=== PATIENT | male | born 1995 | race Caucasian/White ===

== ENCOUNTER 2017-08-02 13:56 | Emergency (ER) | payer OTHER ==
[~2017-08-02] VITALS: Ht 182.9 cm; Wt 75.0 kg
[2017-08-02] MEDS ORDERED: NS 1,000 ML IV SCH (14:22)
[2017-08-02] MEDS ORDERED: ONDANSETRON 4MG/2ML VIAL (J2405) IV ONE (14:30)
[2017-08-02] MEDS ORDERED: MORPHINE 2 MG/ML 1ML SYRINGE IV PRN (14:30)
[2017-08-02] MEDS ORDERED: KETOROLAC 30 MG/ML VIAL (J1885) IV ONE (14:30)
--- NOTE | 2017-08-02 14:50 | REP ---
Clinical: Left renal colic. Findings: Lung bases are clear. Liver, spleen, pancreas, gallbladder, bilateral adrenal glands and kidneys are normal. Specifically, the kidneys are normal and without perinephric stranding, hydroureternephrosis, intrarenal or obstructing ureteral calculi. The enteric system is without obstruction or acute inflammatory process. Pelvis demonstrates normal bladder and age appropriate prostate/seminal vesicles. No ascites. No free air. No obvious adenopathy. Abdominal aorta without aneurysm. Surrounding musculoskeletal structures are intact. Impression: Normal noncontrast CT of the abdomen and pelvis. No acute abdominopelvic pathology appreciated. Signed by Jaswinder Farris MD 08/02/2017 02:42 P
[2017-08-02 14:52] LABS: BASO % 0.3 % (0.0-1.0); EOS # 0.1 K/mm3 (0.0-0.50); EOS % 0.6 % (0.0-3.0); LARGE UNSTAINED CELL # 0.3 K/mm3 (0.0-0.4); LARGE UNSTAINED CELL % 2.9 % (0.0-4.0); LYMPH # 1.3 K/mm3 (1.5-6.5); MEAN CORPUSCULAR HEMOGLOBIN 29.4 pg (27.0-33.0); MEAN CORPUSCULAR VOLUME 81.6 fl (80.0-96.0); MONO # 0.6 K/mm3 (0.0-0.8); MONO % 6.3 % (0.0-5.0); NEUTROPHILS # 7.4 K/mm3 (1.8-7.7); NEUTROPHILS % 76.9 % (36.0-66.0); PLATELET COUNT, AUTOMATED 132 k/mm3 (150-450); WHITE BLOOD COUNT 9.6 K/mm3 (4.0-10.0)
[2017-08-02 14:57] LABS: INR 1.06
[2017-08-02 15:11] LABS: ALBUMIN/GLOBULIN RATIO 1.74 (1.00-1.93); ALKALINE PHOSPHATASE 95 U/L (45-117); ALT/SGPT 30 U/L (12-78); ANION GAP 7 MEQ/L (8-16); AST/SGOT 38 U/L (15-37); BILIRUBIN,DIRECT 0.1 MG/DL (0.0-0.2); BILIRUBIN,TOTAL 0.5 MG/DL (0.2-1.0); BLOOD UREA NITROGEN 22 MG/DL (7-18); CALCIUM LEVEL 9.2 MG/DL (8.5-10.1); CARBON DIOXIDE LEVEL 28 MEQ/L (21-32); CHLORIDE LEVEL 109 MEQ/L (98-107); CREATININE FOR GFR 1.59 MG/DL (0.70-1.30); GLUCOSE, FASTING 86 MG/DL (70-105); SODIUM LEVEL 144 MEQ/L (136-145); TOTAL PROTEIN 6.3 GM/DL (6.4-8.2)
[2017-08-02 15:37] VITALS: BP 129/81
== END 2017-08-02 15:39 | disposition home or self-care (01) ==
LOC: M ED 13:56
DX: E86.0 Dehydration (principal); R10.9 Unspecified abdominal pain; R11.10 Vomiting, unspecified
CPT/HCPCS: 74176; 80048; 80076; 81001; 83690; 85025; 85610; 87086; 96374; 96375; 99283; J1885; J2405

== ENCOUNTER 2021-01-14 11:11 | Emergency (ER) | payer OTHER ==
[~2021-01-14] VITALS: Ht 182.9 cm; Wt 77.7 kg
--- OUTSIDE RECORDS SUMMARY | 2021-01-14 11:18 | CCD ---
Author Author [facility] Organization [facility] Address Unknown Phone Unavailable Care Team Providers Care Mucker Cofferdam Name Role Phone UNKNOWN, CLINIC CADE Unavailable Unavailable TURRIN, TIFFANY Unavailable Unavailable TURRIN, TIFFANY Unavailable Unavailable TURRIN, TIFFANY Unavailable Unavailable TURRIN, TIFFANY Unavailable Unavailable Re-disclosure Warning The records that you are about to access may contain information from federally-assisted alcohol or drug abuse programs. If such information is present, then the following federally mandated warning applies: This information has been disclosed to you from records protected by federal confidentiality rules (42 CFR part 2). The federal rules prohibit you from making any further disclosure of this information unless further disclosure is expressly permitted by the written consent of the person to whom it pertains or as otherwise permitted by 42 CFR part 2. A general authorization for the release of medical or other information is NOT sufficient for this purpose. The Federal rules restrict any use of the information to criminally investigate or prosecute any alcohol or drug abuse patient.The records that you are about to access may contain highly sensitive health information, the redisclosure of which is protected by Article 27-F of the [facility] Public Health law. If you continue you may have access to information: Regarding HIV / AIDS; Provided by facilities licensed or operated by the [facility] Office of Mental Health; or Provided by the [facility] Office for People With Developmental Disabilities. If such information is present, then the following [facility] mandated warning applies: This information has been disclosed to you from confidential records which are protected by state law. State law prohibits you from making any further disclosure of this information without the specific written consent of the person to whom it pertains, or as otherwise permitted by law. Any unauthorized further disclosure in violation of state law may result in a fine or senior care sentence or both. A general authorization for the release of medical or other information is NOT sufficient authorization for further disc losure. Encounters Encounter Providers Location Date Indications Data Source(s ) Emergency Attender: TIFFANY MORALESConsultant: ALYSSIA RONIT NOWReina 01/11/2021 10:11:00 AM [facility] - 01/11/2021 12:02:00 PM [facility] Patient discharged. Insurance Providers Payer name Policy type / Coverage type Policy ID Covered democrat ID Covered democrat's relationship to pearson Policy Pearson Plan Information ACTIVE DUTY [id number] SP [id number] [facility] HUMANA - O/P [id number] 01 [id number] [facility] [employer] - O/P [id number] 18 [id number] N [facility] [place] -O/P [id number] 18 [id number] Problems, Conditions, and Diagnoses Code Display Name Description Problem Type Effective Dates Data Source(s) R57000 Personal history of nicotine dependence Personal history of nicotine dependence Diagnosis 01/11/2021 10:11:00 AM [facility] R519 Headache, unspecified Headache, unspecified Diagnosis 01/11/2021 10:11:00 AM [facility] Results ID Date Data Source [id number] 01/12/2021 06:22:00 PM [facility] [address] [place] [address] PHONE: [phone] FAX: [phone] Name .................. : NILES Perez Acct Number.................. : [id number] ROOM. ................. : TR-02 Number ................... : [id number] Stay type ............. : E/R Discharge Date......... ... : 01/11/21 Admit Date ......... : 01/11/21 Admit Phys .................... : CARMEN FE Date of ....... : 1995 Family Phys ................... : UNKNOWN Phone .................. : [phone] Age ................................ : 25 Film# .................. .:[id number] Sex ................................. : M Unsigned transcriptions are preliminary reports and do not represent a medical or legal document CT HEAD W/O CONTRAST [id number] COMPLETE:01/11/21 10:52 FRANCISCO [id number] Reason(s): ? R eye pupillary dilatation and R sided headache x [address] OF THE HEAD WITHOUT CONTRAST ENHANCEMENT: CLINICAL HISTORY: Right eye pupillary dilatation, right-sided headaches. FINDINGS: No intra-axial or extra-axial collections of fluid. Ventricles and sulci unremarkable. No midline shift or mass effect. Visualized paranasal sinuses and mastoid air cells unremarkable. IMPRESSION: No acute intracranial process. While performing the above CT examination, radiation dose reduction was accomplished utilizing automated exposure control, adjusting of the mA and kV based on the patient's body size an d/or the use of imperative reconstructive techniques. CT dose: 864.3 mGycm Electronically Reviewed and Signed By ARY NDIAYE MD , 01/12/21 18:22, [facility] Transcribe Initials: ELDER , Transcribe Date: 01/11/21 15:45, Dictation Date: Copy for: CLAUDE Rawls via fax Copy for: EMERGENCY DEPT via carawaym Copy for: 710 MED REC DISCHARGED Page 1 of 1 Name Value Range Interpretation Code Description Data Jayshree rce(s) Supporting Document(s) ID Date Data Source [id number] 01/11/2021 10:11:00 AM EST [facility] 1 OrderSheet [facility] Emergency Department [address] [place] [address] Phone #: ext- [phone] 01/11/2021 10:03 Patient: АНДРЕЙ CAGE Sex: M : 1995 Age: 25yWEIGHT:86.8 kg (M) HEIGHT:72 inches (S) BMI:26.0ALLERGIES: NoneCHIEF COMPLAINT: headacheDIAGNOSIS: HeadacheLAB ORDERSOrder Description Priority Entered Acknowledged InitialedCBC w Diff STAT 10:35 01/11/2021 10:39 Dat Canales; Yvette ChildersCMP STAT 10:35 01/11/2021 10:39 Dat Canales; Yvette ChildersDIAGNOSTIC STUDY ORDERSOrder Description Priority Entered Acknowledged InitialedCT Head W/O Cont STAT 10:35 01/11/2021 10:52 Parker,(Oxygen?(No)) Dat CH; Yvette Childers Reason for Study: ? R eye pupilaary dilatation and R sided headache x 2 mos.MEDICATION/IV/DRIP/FLUID ORDERSOrder Description Priority Entered Acknowledged InitialedAcetaminophen 1 g 10:35 01/11/2021 10:39 Parker,PO X1 dose: 1000 Dat CH; Yvette Childersmg (NOW x1)GENERAL ORDERSOrder Description Priority Entered Acknowledged Initialed[Electronically signed by Yvette Canales R.N. (11:59 01/11/2021)][Electronically signed by Dat Chavez (13:13 01/11/2021)][Electronically locked by Yvette Canales R.N. (11:59 01/11/2021)] Name Value Range Interpretation Code Description Data [facility](s) Supporting Document(s) ID Date Data Source [id number] 01/11/2021 10:11:00 AM [facility] 1 Medication Reconciliation Report [facility] Emergency Department [address] [place] [address] Phone #: ext- [phone] 01/11/2021 10:03 Patient: АНДРЕЙ CAGE Sex: M : 1995 Age: 25yWeight: 86.8 kgHeight/Length: 72 in.BMI: 26.0ALLERGIES: NoneThe patient's Home Medications are listed below:CONTINUE TAKING THE FOLLOWING MEDICATIONS: Cyclobenzaprine HCl Oral (10 mg), prn some mediation it is like motrinThe source(s) of the original Home Medication information:Not o btained.The following Medications were given to the patient in the Emergency Department:Acetaminophen [PO] PO 1000 mg, administered: 10:39 01/11/2021The following Medications were prescribed to the patient:None. Name Value Range Interpretation Code Description Data [facility](s) Supporting Document(s) ID Date Data Source [id number] 01/11/2021 10:11:00 AM [facility] 1 Medication Administration Record [facility] Emergency Department [address] [place] [address] Phone #: ext- [phone] 01/11/2021 10:03 Patient: АНДРЕЙ CAGE Sex: M : 1995 Age: 25yWeight: 86.8 kgHeight/Length: 72 inBMI: 26ALLERGIES: None Date/Time Medication Administered Medication OrderedGiven ACETAMINOPHEN [PO] Acetaminophen 1 g PO X1 dose:10:39 01/11/2021 Dose: 1000 mg PO 1000 mg (NOW x1)Yvette Canales R.N. Name Value Range Interpretation Code Description Data Jayshree rce(s) Supporting Document(s) ID Date Data Source [id number] 01/11/2021 10:11:00 AM EST [facility] 1 General Instructions [facility] Emergency Department [address] [place] [address] Phone #: ext- [phone] 01/11/2021 10:03 Patient: АНДРЕЙ CAGE Sex: M : 1995 Age: 25yHeadache (non specific).(? anisicoria R eye).INSTRUCTIONSNo strenuous activity until better.Do not smoke. No alcohol.Warnings: Further evaluation is necessary in order to conduct further tests. It is very important to follow upwith a healthcare provider.GENERAL WARNINGS: Return or contact your physician immediately if your condition worsens orchanges unexpectedly, if not improving as expected, or if other problems arise. SPECIFICALLY, return ifyou develop fe chaz, vomiting, numbness, weakness, difficulty thinking, visual disturbances, fainting orextreme fatigue.Your Current Medications: Your current home medications have been reviewed.CONTINUE TAKING THE FOLLOWING MEDICATIONS:Cyclobenzaprine HCl Oral : Tablet 10 mg, prn.some mediation it is like motrin*.Follow-up:Follow up with your healthcare provider in three days even if well. Call for the next available appointment.Reason for referral: evaluation and recommend MRI/MRA brain, neurology referral if symptoms persist.Recommend Ophthalmology referral for further evaluation of ? anisicoria R eye. Summary of care providedto patient via paper.Understanding of the discharge instructions verbalized by patient. Expected course of illness, dischargeinstructions, activity level, follow-up appointment and risks and benefits of treatment reviewed with patientand understanding verbalized. Agrees to plan of care.Follow-up with: [facility], , , [address], , [place], [address] Follow up in three days even if well. Call for the next available appointment. Reason for referral:evaluation and ? anisicoria R eye, with R sided episodic headaches. Summary of care provided to patientvia paper. 2 General Instructions [facility] Emergency Department [address] [place] [address] Phone #: cnw- [phone] 01/11/2021 10:03 Patient: АНДРЕЙ CAGE Sex: M : 1995 Age: 25yNo strenuous activity until better.(Electronically signed by JING Brandt 01/11/2021 13:13) Name Value Range Interpretation Code Description Data Jayshree rce(s) Supporting Document(s) ID Date Data Source [id number] 01/11/2021 10:11:00 AM EST [facility] 1 Clinical Report - Nurses [facility] Emergency Department [address] [place] [address] Phone #: ext- [phone] 01/11/2021 10:03 Patient: АНДРЕЙ CAGE Sex: M : 1995 Age: 25yTRIAGEArrived by private vehicle. Historian: patient. Unaccompanied. ( pt states his pupil sizes have beendifferent sizes and during this time he has a headache).Acuity: LEVEL 3.Chief Complaint: (pupil changes).Alert. No acute distress.This started 2 weeks on and off. ( states he f eels "off"). The patient has had a headache (right side).Treatment DISTRICT COURT JUDGE:None.SEPSIS SCREEN: SIRS SCREEN NEGATIVE. SEPSIS SCREEN NEGATIVE. No suspected or confirmedsigns of infection present. --10:12 01/11/21 Regina Wade R.N.10:05 01/11/21. BP: 136/75. MAP: 95. HR: 73. RR: 18. O2 saturation: 99%. Temp: 97.3 F. Pain level now:03/29. --10:12 01/11/21 Regina Wade R.N.Weight: 86.8 kg measured. Height/Length: 72 inches Per Patient. BMI: 26. --10:05 01/11/21 Regina Wade R.N.MedicationsCyclobenzaprine HCl Oral (Tablet 10 mg), as needed. --10:07 01/11/21 Regina Wade R.N. some mediation it is like motrin. --10:08 01/11/21 Regina Wade R.N.AllergiesNone. --10:07 01/11/21 Regina Wade R.N.PROBLEMS:Testicular issue.Anxiety Reaction.Hip issues.Neck issues. --10:09 01/11/21 Regina Wade R.N.Back Pain. --10:12 01/11/21 Charles Brandt following entry was modified by JING Brandt, 10:12 01/11/21Back Pain. --10:08 01/11/21 Regina Wade R.N..ADDITIONAL SURGERIES: 2 Clinical Report - Nurses [facility] Emergency Department [address] [place] [address] Phone #: ext- [phone] 01/11/2021 10:03 Patient: АНДРЕЙ CAGE [facility]#: [id number] Sex: M : 1995 Age: 25y Hernia Repair. Testicular surgery. --10:09 01/11/21 Regina Wade R.N. History PAST MEDICAL HX: Immunizations: up-to-date. SOCIAL HX: Smoker- current status unknown (quit 1 month ago). Occasional alcohol use. Drug use: marijuana. (stopped 3 weeks ago). The patient was offered HIV testing but declined and hepatitis C testing but declined. The patient has not traveled outside the [place] Infectious disease exposure: No infectious disease exposure. Patient is not a known carrier of tuberculosis, hepatitis, HIV, MRSA or VRE. Patient is not a known carrier of CRE. SELF HARM ASSESSMENT: Self harm assessment was performed. The patient answered "no" to the question(s) "Have you recently felt down, depressed, or hopeless?", "Do you have thoughts of harming or killing yourself?", "Do you have a plan for harming or killing yourself?", "Have you recently had thoughts about harming or killing others?", "Do you have any dangerous items in your possession?", "Have you noticed less interest or pleasure in doing things?", "Are you here because you tried to hurt yourself?" and "Have you ever tried to hurt yourself before today?". ABUSE ASSESSMENT: Abuse assessment. Abuse denied. No suspicion of abuse. No report of abuse. NUTRITIONAL RISK ASSESSMENT: The nutritional risk assessment revealed no deficiencies. FUNCTIONAL ASSESSMENT: Functional assessment: no impairments noted. LEARNING NEEDS ASSESSMENT: The learning needs assessment revealed no barriers. FALL RISK ASSESSMENT: Fall risk assessment completed. No risk factors identified. SKIN INTEGRITY ASSESSMENT: Skin integrity risk assessment completed. No skin integrity risk identified. --10:12 01/11/21 Regina Wade R.N. Interventions Identification band on patient. To treatment room. --10:12 01/11/21 Regina Wade R.N.PHYSICAL ASSESSMENTAmbulatory to room.GENERAL / NEURO / PSYCH: Awake. Oriented X 4. Alert. Appears in no acute distress. Speechnormal. Mood/affect normal. Moves all extremities equally. No motor deficit. No sensory deficit.Pupillary exam: Right pupil 5mm, round and briskly reactive. Left pupil: 3mm, round and briskly reactive.HEENT: Visual acuity without corrective lenses: left eye 20/25; right eye 20/40; both eyes 20/25. ( Rightsided RYAN).RESPIRATORY: Breath sounds within normal limits. Respirations not labored.CVS: Normal sinus rhythm noted. Capillary refill less than 2 seconds.SKIN: Skin is intact, warm and dry. --10:35 01/11/21 Yvette Canales R.N. 3 Clinical Report - Nurses [facility] Emergency Department [address] [place] [address] Phone #: ext- [phone] 01/11/2021 10:03 Patient: АНДРЕЙ CAGE Sex: M : 1995 Age: 25yNURSING PROGRESS NOTESPatient gowned. Reassurance given. Two patient identifiers checked. Call light placed in reach. Siderails up x 2. Bed placed in lowest position. Brakes of bed on. Patient ready for evaluation- ED physiciannotified. --10:12 01/11/21 Regina Wade R.N. 10:37 01/11/21. Patient tra nsported to [place] by wheelchair with mask and tech. --10:52 01/11/21 Yvette Canales R.N. 10:39 01/11/2021 Acetaminophen PO 1000 mg given. Allergies verified and confirmed 5 rights. Information reviewed with patient including reason for taking this medication. Verbalizes understanding. --10:39 01/11/21 Yvette Canales R.N. 10:43 01/11/21. Patient returned from CT by wheelchair with mask and tech. --10:53 01/11/21 Yvette Canales R.N.DISPOSITION / DISCHARGE 11:25 01/11/21. BP: 122/76. HR: 68. RR: 16. O2 saturation: 99%. Temp: 97.6 F. Pain level now 12/30. --11:25 01/11/21 [facility] Rob De La Rosa ER Tech1 Condition at departure: improved and stable. No learning barriers present. Reviewed referral to an senior web services developer. Work note given. The patient was discharged by the physician portfolio assistant. He was discharged home. He left ambulatory and via private vehicle. Patient driving. --11:58 01/11/21 Yvette Canales R.N.Locked/Released at 01/11/2021 11:59 by Yvette Canales R.N. Name Value Range Interpretation Code Description Data Jayshree rce(s) Supporting Document(s) ID Date Data Source [id number] 01/11/2021 10:11:00 AM [facility] 1 Clinical Report - Physicians/Mid Levels [facility] Emergency Department [address] [place] [address] Phone #: ext- [phone] 01/11/2021 10:03 [id number] Sex[facility] M : 1995 Age: 25y Time Seen: 10:07 01/11/2021. Arrived- By private vehicle. Historian- patient. Disposition decision: 11:20 01/11/2021.HISTORY OF PRESENT ILLNESS Chief Complaint: HEADACHE. This started about 2 months ago. Located in the right hemicranial region. No neck pain. Not located in the facial region. At its maximum, severity described as 5 / 10. When seen in the E.D., severity described as 2 / 10. Modifying factors: relieved by nothing. Not worsened by anything. No preceding symptoms, blurred vision, photophobia, associated nausea or numbness. No weakness or vomiting. (Pt states he has had intermittent R sided pupil dilation and R sided headache x 2 mos. Episodes lasts mins to hours at a time. No eye injury, no recent head injury, no NV, dizziness, or fever. Headache 2/10 currently.). Similar symptoms previously. Patient has had similar symptoms several times. Recent medical care: Not recently seen/assessed.REVIEW OF SYSTEMSNo fever, muscle aches, sinus pressure, ear pain or sore throat. No carbon monoxide exposure, tick bite,head injury, chest pain or difficulty ольга athing. No cough, abdominal pain, diarrhea, pain with urination orskin rash. No enlarged lymph nodes or back pain.PAST HISTORYSee nurses notes. Problems: Back Pain. Bronchitis. Back Injury. Laceration. Viral Disease. Testicular issue. Anxiety Reaction. Hip issues. Neck issues. Additional Surgeries: CYST REMOVAL . (RIGHT SHOULDER ) Hernia Repair. 2 Clinical Report - Physicians/Mid [facility] Emergency Department [address] [place] [address] Phone #: ext- [phone] 01/11/2021 10:03 [id number] Sex[facility] M : 1995 Age: 25y LEFT TESTICLE REMOVAL. Testicular surgery. TESTICULAR TORSION. Testiculat torsion repair. Testis excision. (Left testicle removed d/t testicular torsion). Medications: some mediation it is like motrin. Cyclobenzaprine HCl Oral (Tablet 10 mg), as needed. Allergies: None.SOCIAL HISTORYFormer smoker. Occasional alcohol use. Drug use: marijuana. No recent travel.ADDITIONAL NOTESThe nursing notes have been reviewed with agreement regarding the chief complaint, HPI, ROS, PMH andpatient medications and allerg ies.PHYSICAL EXAMVital Signs: 01/11/2021 10:05 BP: 136/75. MAP: 95. HR: 73. RR: 18. O2 saturation: 99%. Temp: 97.3 F.Pain level now: 5/10. Have been reviewed as normal and appear to be correct. Blood pressure normal.Mean arterial pressure- normal. Heart rate normal. Respiratory rate normal. Temperature normal.Oxygen saturation normal.Appearance: Alert. No acute distress.Eyes: Visual acuity noted- see nurse's notes. Eyelids appear normal to inspection. Conjunctivae andsclerae appear normal to inspection. Corneas appear normal to inspection. Pupils equal, round andreactive to light and light. Accommodation normal. Eyes normal inspection. EOMs intact. Periorbitalareas appear normal to inspection. (No abnormal pupillary findings on exam).Rt Eye: Right eye exam normal. Pupil 3mm.Lt Eye: Left eye exam normal. Pupil 3mm.ENT: Ears normal. Nose normal. Pharynx normal.Neck: Normal inspection. Neck supple.CVS: Normal heart rate and rhythm. Heart sounds normal. Pulses normal.Respiratory: No respiratory distress. Painless inspiration. Breath sounds normal.Abdomen: Soft and nontender. No organomegaly.Back: Normal inspection.Skin: Skin warm and dry. Normal skin color. No rash. Normal skin turgor.Extremities: Extremities exhibit normal ROM. No lower extremity edema.Neuro: Oriented X 3. Alert. Mood/affect normal. Speech normal. Cranial nerves normal (as tested).No cerebellar findings. No motor deficit. No sensory deficit. Reflexes normal.LABS, X-RAYS, AND EKGCT Head: No acute changes. Head CT performed without contrast. The study was independently 3 Clinical Report - Physicians/Mid Levels [facility] Emergency Department [address] [place] [address] Phone #: ext- [phone] 01/11/2021 10:03 Patient: АНДРЕЙ CAGE Sex: M : 1995 Age: 25yviewed by me and interpreted by the radiologist and contemporaneously by me. Interpretation time: 11:.Laboratory Tests: Laboratory tests have been ordered, with results reviewed and considered in themedical decision making process.CBC w Diff: (JEROME: 01/11/2021 10:42) ( MsgRcvd 01/11/2021 11:11) Final results Test Result Flag Units (Reference) CBC W/AUTOMATED DIFF COMPLETE BLOOD COUNT WBC 3.8 L 10/uL (4.2 - 11.0) RBC 5.60 10/uL (4.50 - 6.30) HEMOGLOBIN 16.1 H g/dL (14.0 - 16.0) HEMATOCRIT 46.2 % (41.0 - 51.0) MCV 82.5 fL (80.0 - 94.0) MCH 28.8 pg (27.0 - 34.0) MCHC 34.8 g/dL (31.0 - 36.0) RDW 12.2 % (11.5 - 14.8) PLATELETS 148 L 10/uL (150 - 450) MPV 11.7 H fL (7.4 - 10.4) NEUT 58.1 % (37.0 - 80.0) LYMPH 29.8 % (25.0 - 40.0) MONO 9.4 H % (3.0 - 8.0) EOS 1.6 % (0.0 - 7.0) BASO 0.8 % (0.0 - 2.0) %IG 0.3 H % (0.0 - 0.0) %NRBC 0.0 % (0.0 - 0.0) #NEUT 2.23 10/uL (2.00 - 6.90) #LYMPH 1.14 10/uL (0.60 - 3.40) #MONO 0.36 10/uL (0.00 - 0.90) #EOS 0.06 10/uL (0.00 - 0.70) #BASO 0.03 10/uL (0.00 - 0.20) #IG 0.01 10/uL (0.00 - 0.10) #NRBC 0.00 10/uL (0.00 - 0.00) MANUAL DIFF NOT INDICATED RBC MORPH NOT INDICATEDCMP: (JEROME: 01/11/2021 10:42) ( MsgRcvd 01/11/2021 11:11) Final results Test Result Flag Units (Reference) COMPREHENSIVE METABOLIC PANEL COMPREHENSIVE METABOLIC PANEL SODIUM 141 mEq/L (134 - 153) POTASSIUM 4.5 mEq/L (3.6 - 5.0) CHLORIDE 103 mEq/L (98 - 107) CO2 30 MEQ/L (22 - 30) GLUCOSE 93 MG/DL (70 - 99) BUN 15 MG/DL (7 - 21) CREATININE 1.0 MG/DL (0.7 - 1.5) BUN/CREAT 15 (8 - 27) TOTAL PROTEIN 7.4 G/DL (6.3 - 8.2) ALBUMIN 4.8 G/DL (3.9 - 5.0) GLOBULIN 2.6 GM/DL (2.4 - 3.2) A/G RATIO 1.8 (0.8 - 2.0) CALCIUM 9.7 MG/DL (8.4 - 10.2) TOTAL BILI 0.7 MG/DL (0.2 - 1.3) ALKALINE PHOS 75 U/L (38 - 126) SGOT/AST 23 U/L (5 - 40) SGPT/ALT 24 U/L (7 - 56) 4 Clinical Report - Physicians/Mid Levels [facility] Emergency Department [address] [place] [address] Phone #: ext- [phone] 01/11/2021 10:03 Patient: АНДРЕЙ CAGE 54 Sex: M : 1995 Age: 25y ANION GAP 8.0 mmol/L (8.0 - 16.0) AGE 25 yrs NON-AA GFR >60 mL/min AFR AMER GFR >60 mL/min Male GFR Interprentation 20-49 yrs >60 mL/min Normal 50-59 yrs >56 mL/min Normal 60-69 yrs >49 mL/min Normal 70-79yrs >42 mL/min Normal 80 and above >35 mL/min Normal Female GFR Interpretation 20-39 yrs >60 mL/min Normal 40-49 yrs >58 mL/min Normal 50-59 yrs >51 mL/min Normal 60-69 yrs >45 mL/min Normal 70-79 yrs >39 mL/min Normal 80 and above >32 mL/min Normal CT Head W/O Cont: (JEROME: 01/11/2021 10:35) ( MsgRcvd 01/11/2021 10:52) In Progress CT HEAD W/O CONTRAST Reason(s): ? R eye pupilaary dilatation and R sided heada wilfredo x 2 mos. TRANSPORTATION: IV? O2? Oxygen?(No) Room: ED.PROGRESS AND PROCEDURESCourse of Care: 10:43 Jan [address] head results. Disposition: Discharged home in good and improved condition. Discharge decision based on the following: patient's condition is stable; patient's condition is improved; patient is ambulatory; patient is active; patient's exam is improved; minimally abnormal test results; improving condition on repeat evaluation; social support is adequate; transportation is available; follow-up is available; clinical impression is consistent with outpatient treatment.CLINICAL IMPRESSION Headache (non specific). (? anisicoria R eye).INSTRUCTIONS No strenuous activity until better. Do not smoke. No alcohol. Warnings: Further evaluation is necessary in order to conduct further tests. It is very important to follow up with a healthcare provider. GENERAL WARNINGS: Return or contact your physician immediately if your condition worsens or changes unexpectedly, if not improving as expected, or if other problems arise. SPECIFICALLY, return if you develop fever, vomiting, numbness, weakness, difficulty thinking, visual disturbances, fainting or extreme fatigue. 5 Clinical Report - Physicians/Mid Levels [facility] Emergency Department [address] [place] [address] Phone #: ext- [phone] 01/11/2021 10:03 [id number] Sex: M : 1995 Age: 25y Your Current Medications: Your current home medications have been reviewed. CONTINUE TAKING THE FOLLOWING MEDICATIONS: Cyclobenzaprine HCl Oral : Tablet 10 mg, prn. some mediation it is like motrin*. Follow-up: Follow up with your healthcare provider in three days even if well. Call for the next available appointment. Reason for referral: evaluation and recommend MRI/MRA brain, neurology referral if symptoms persist. Recommend Ophthalmology referral for further evaluation of ? anisicoria R eye. Summary of care provided to patient via paper. Understanding of the discharge instructions verbalized by patient. Expected course of illness, discharge instructions, activity level, follow-up appointment and risks and benefits of treatment reviewed with patient and understanding verbalized. Agrees to plan of care. Follow-up with: [facility], , , [address] [place] [address], , [place], [address] Follow up in three days even if well. Call for the next available appointment. Reason for referral: evaluation and ? anisicoria R eye, with R sided episodic headaches. Summary of care provided to patient via paper.(Electronically signed by JING Brandt 01/11/2021 13:13) Name Value Range Interpretation Code Description Data Jayshree rce(s) Supporting Document(s) ID Date Data Source [id number] 01/11/2021 11:11:00 AM EST [facility] Name Value Range Interpretation Code Description Data Jayshree rce(s) Supporting Document(s) COMPREHENSIVE METABOLIC PANEL [facility] COMPREHENSIVE METABOLIC PANEL Sodium [Moles/volume] in Serum or Plasma 141 mEq/L 134 - 153 [facility] Potassium [Moles/volume] in Serum or Plasma 4.5 mEq/L 3.6 - 5.0 [facility] Chloride [Moles/volume] in Serum or Plasma 103 mEq/L 98 - 107 [facility] Carbon dioxide, total [Moles/volume] in Serum or Plasma 30 MEQ/L 22 - 30 [facility] Glucose [Mass/volume] in Serum or Plasma 93 MG/DL 70 - 99 [facility] BUN 15 MG/DL 7 - 21 [facility] Creatinine [Mass/volume] in Serum or Plasma 1.0 MG/DL 0.7 - 1.5 [facility] BUN/CREAT 15 8 - 27 [facility] Protein [Mass/volume] in Serum or Plasma 7.4 G/DL 6.3 - 8.2 [facility] Albumin [Mass/volume] in Serum or Plasma 4.8 G/DL 3.9 - 5.0 [facility] Globulin [Mass/volume] in Serum by calculation 2.6 GM/DL 2.4 - 3.2 [facility] A/G RATIO 1.8 0.8 - 2.0 [facility] Calcium [Mass/volume] in Serum or Plasma 9.7 MG/DL 8.4 - 10.2 [facility] Bilirubin.total [Mass/volume] in Serum or Plasma 0.7 MG/DL 0.2 - 1.3 [facility] Alkaline phosphatase [Enzymatic activity/volume] in Serum or Plasma 75 U/L 38 - 126 [facility] Aspartate aminotransferase [Enzymatic activity/volume] in Serum or Plasma 23 U/L 5 - 40 [facility] Alanine aminotransferase [Enzymatic activity/volume] in Seru m or Plasma 24 U/L 7 - 56 [facility] Anion gap 3 in Serum or Plasma 8.0 mmol/L 8.0 - 16.0 [facility] AGE 25 yrs [facility] al NON-AA GFR >60 mL/min [facility] ital AFR AMER GFR >60 mL/min [facility] Ho spital Male GFR In terprentation 20-49 yrs >60 mL/min Normal 50-59 yrs >56 mL/min Normal 60-69 yrs >49 mL/min Normal 70-79yrs >42 mL/min Normal 80 and above >35 mL/min Normal Female GFR Interpretation 20-39 yrs >60 mL/min Normal 40-49 yrs >58 mL/min Normal 50-59 yrs >51 mL/min Normal 60-69 yrs >45 mL/min Normal 70-79 yrs >39 mL/min Normal 80 and above >32 mL/min Normal ID Date Data Source [id number] 01/11/2021 11:11:00 AM EST [facility] Name Value Range Interpretation Code Description Data Jayshree rce(s) Supporting Document(s) CBC W/AUTOMATED DIFF [facility] COMPLETE BLOOD COUNT Leukocytes [#/volume] in Blood by Automated count 3.8 10^3/uL 4.2 - 1 1.0 L [facility] Erythrocytes [#/volume] in Blood by Automated count 5.60 10^6/uL 4. 50 - 6.30 [facility] Hemoglobin [Mass/volume] in Blood 16.1 g/dL 14.0 - 16.0 H [facility] Hematocrit [Volume Fraction] of Blood by Automated count 46.2 % 4 1.0 - 51.0 [facility] Erythrocyte mean corpuscular volume [Entitic volume] by Auto mated count 82.5 fL 80.0 - 94.0 [facility] Erythrocyte mean corpuscular hemoglobin [Entitic mass] by Automated count 28.8 pg 27.0 - 34.0 [facility] Erythrocyte mean corpuscular hemoglobin concentration [Mass/volume] by Automated count 34.8 g/dL 31.0 - 36.0 [facility] Erythrocyte distribution width [Ratio] by Automated count 12.2 % 11.5 - 14.8 [facility] Platelets [#/volume] in Blood by Automated count 148 10^3/uL 150 - 45 0 L [facility] Platelet mean volume [Entitic volume] in Blood by Automated count 11.7 fL 7.4 - 10.4 H [facility] Neutrophils/100 leukocytes in Blood by Automated count 58.1 % 37. 0 - 80.0 [facility] Lymphocytes/100 leukocytes in Blood by Manual count 29.8 % 25.0 - 40.0 [facility] Monocytes/100 leukocytes in Blood by Automated count 9.4 % 3.0 - 8.0 H [facility] Eosinophils/100 leukocytes in Blood by Automated count 1.6 % 0.0 - 7.0 [facility] Basophils/100 leukocytes in Blood by Automated count 0.8 % 0.0 - 2.0 [facility] %IG 0.3 % 0.0 - 0.0 [facility] %NRBC 0.0 % 0.0 - 0.0 [facility] al Neutrophils [#/volume] in Blood by Automated count 2.23 10^3/uL 2.00 - 6.90 [facility] Lymphocytes [#/volume] in Blood by Automated count 1.14 10^3/uL 0.60 - 3.40 [facility] Monocytes [#/volume] in Blood by Automated count 0.36 10^3/uL 0.00 - 0.90 [facility] Eosinophils [#/volume] in Blood by Automated count 0.06 10^3/uL 0.00 - 0.70 [facility] Basophils [#/volume] in Blood by Automated count 0.03 10^3/uL 0.00 - 0.20 [facility] #IG 0.01 10^3/uL 0.00 - 0.10 [facility] #NRBC 0.00 10^3/uL 0.00 - 0.00 [facility] MANUAL DIFF NOT INDICATED [facility] RBC MORPH NOT INDICATED [facility] sp[facility] Procedure
[2021-01-14] MEDS ORDERED: CYCL-707 (11:22)
[2021-01-14] MEDS ORDERED: CELE100C (11:22)
--- OUTSIDE RECORDS SUMMARY | 2021-01-14 12:01 | CCD ---
Author Author [facility] Organization [facility] Address Unknown Phone Unavailable Care Team Providers Care [employer] Worker Name Role Phone UNKNOWN, CLINIC CADE Unavailable [...] is protected by Article 27-F of the [facility] Public Health law. If you continue you may have access to information: Regarding HIV / AIDS; Provided by facilities licensed or operated by the [facility] Office of Mental Health; or Provided by the [facility] Office for People With Developmental Disabilities. If such information is present, then the following [facility] mandated warning applies: This information has been [...] Indications Data Source(s ) Emergency Attender: TIFFANY Douglasssultant: CADE RONIT NOWReina 01/11/2021 10:11:00 AM [facility] - 01/11/2021 12:02:[address] [facility] Patient discharged. Insurance Providers Payer name Policy type / Coverage type Policy ID Covered libertarian ID Covered libertarian's relationship to pearson Policy Pearson Plan Information 'S ADMINISTRATION [id number] SP [id number] [facility] ACTIVE DUTY [id number] SP [id number] [facility] HUMANA - O/P [id number] 01 [id number] [facility] HUMANA - O/P [id number] 18 [id number] [facility] CLAIMS MELCHOR -O/P [id number] 18 [id number] Problems, Conditions, and Diagnoses Code Display Name Description Problem Type Effective Dates Data Source(s) U07026 Personal history of nicotine dependence Personal history of nicotine dependence Diagnosis 01/11/2021 10:11:[address] [facility] R519 Headache, unspecified Headache, unspecified Diagnosis 01/11/2021 10:11:[address] [facility] Results ID Date Data Source [id number] 01/12/2021 06:22:00 PM [facility] [address] [place] [address] PHONE: [phone] FAX: [phone] Name .................. : NILES Perez Acct Number.................. : [id number] ROOM. ................. : TR-02 MR Number ................... : [id number] Stay type ............. : E/R Discharge Date......... ... : 01/11/21 Admit Date ......... : 01/11/21 Admit Phys .................... : CARMEN FE Date of ....... : 1995 Family Phys ................... : UNKNOWN Phone .................. : [phone] Age ................................ : 25 Film# .................. .:[id number] Sex ................................. : M Unsigned transcriptions are preliminary reports and do not represent a medical or legal document CT HEAD W/O CONTRAST [id number] COMPLETE:01/11/21 10:52 FRANCISCO 4840 Reason(s): ? R [...] By ARY NDIAYE MD , 01/12/21 18:22, [facility] Transcribe Initials: ELDER , Transcribe Date: 01/11/21 15:45, Dictation Date: Copy for: CLAUDE Rawls via fax Copy for: EMERGENCY DEPT via modem Copy for: 710 MED REC DISCHARGED Page 1 of 1 Name Value Range Interpretation Code Description Data Jayshree rce(s) Supporting Document(s) ID Date Data Source [id number] 01/11/2021 10:11:00 AM EST [facility] 1 OrderSheet [facility] Emergency Department [address] [place] [address] Phone #: ext- [phone] 01/11/2021 10:03 Patient: АНДРЕЙ CAGE Sex: M : 1995 Age: 25yWEIGHT:86.8 kg (M) HEIGHT:72 inches (S) BMI:26.0ALLERGIES: NoneCHIEF COMPLAINT: headacheDIAGNOSIS: HeadacheLAB ORDERSOrder Description Priority Entered Acknowledged InitialedCBC w Diff STAT 10:35 01/11/2021 10:39 Dat Canales; Yvette ChildersCMP STAT 10:35 01/11/2021 10:39 Dat Canales; Yvette ChildersDIAGNOSTIC STUDY ORDERSOrder Description Priority Entered Acknowledged InitialedCT Head W/O Cont STAT 10:35 01/11/2021 10:52 Parker(Oxygen?(No)) Dat CH; Yvette Childers Reason for Study: ? R eye pupilaary dilatation and R sided headache x 2 mos.MEDICATION/IV/DRIP/FLUID ORDERSOrder Description Priority Entered Acknowledged InitialedAcetaminophen 1 g 10:35 01/11/2021 10:39 ParkerPO X1 dose: 1000 Dat CH; Yvette Childersmg (NOW x1)GENERAL ORDERSOrder Description Priority Entered Acknowledged Initialed[Electronically signed by Yvette Canales R.N. (11:59 01/11/2021)][Electronically signed by Dat Chavez (13:13 01/11/2021)][Electronically locked by Yvette Canales R.N. (11:59 01/11/2021)] Name Value Range Interpretation Code Description Data Jayshree rce(s) Supporting Document(s) ID Date Data Source [id number] 01/11/2021 10:11:[address] [facility] 1 Medication Reconciliation Report [facility] Emergency Department [address] [place] [address] Phone #: ext- [phone] 01/11/2021 10:03 Patient: [...] rce(s) Supporting Document(s) ID Date Data Source [id number] 01/11/2021 10:11:[address] [facility] 1 Medication Administration Record [facility] Emergency Department [address] [place] [address] Phone #: ext- [phone] 01/11/2021 10:03 [id number] Sex[facility] M : 1995 Age: 25yWeight: 86.8 kgHeight/Length: 72 inBMI: 26ALLERGIES: None Date/Time Medication Administered Medication OrderedGiven ACETAMINOPHEN [PO] Acetaminophen 1 g PO X1 dose:10:39 01/11/2021 Dose: 1000 mg PO 1000 mg (NOW x1)Yvette Canales R.N. Name Value Range Interpretation Code Description Data Jayshree rce(s) Supporting Document(s) ID Date Data Source [id number] 01/11/2021 10:11:00 AM EST [facility] 1 General Instructions [facility] Emergency Department [address] [place] [address] Phone #: ext- [phone] 01/11/2021 10:03 Patient: [...] verbalized. Agrees to plan of care.Follow-up with: [facility], , , [address] [place] [address], [place], [address] Follow up in three days even if well. Call for the next available appointment. Reason for referral:evaluation and ? anisicoria R eye, with R sided episodic headaches. Summary of care provided to patientvia paper. 2 General Instructions [facility] Emergency Department [address] [place] [address] Phone #: stv- [phone] 01/11/2021 10:03 Patient: АНДРЕЙ CAGE Sex: M : 1995 Age: 25yNo strenuous activity until better.(Electronically signed by JING Brandt 01/11/2021 13:13) Name Value Range Interpretation Code Description Data Jayshree rce(s) Supporting Document(s) ID Date Data Source [id number] 01/11/2021 10:11:00 AM EST [facility] 1 Clinical Report - Nurses [facility] Emergency Department [address] [place] [address] Phone #: ext- [phone] 01/11/2021 10:03 Patient: [...] patient has had a headache (right side).Treatment GROCERY STORE CLERK:None.SEPSIS SCREEN: SIRS SCREEN NEGATIVE. SEPSIS SCREEN NEGATIVE. [...] R.N..ADDITIONAL SURGERIES: 2 Clinical Report - Nurses [facility] Emergency Department [address] [place] [address] Phone #: ext- [phone] 01/11/2021 10:03 Patient: АНДРЕЙ CAGE [facility]#: [id number] Sex: M : 1995 Age: 25y Hernia [...] on patient. To treatment room. --10:12 01/11/21 Mauro, Regina, R.N.PHYSICAL ASSESSMENTAmbulatory to room.GENERAL / NEURO / [...] Canales R.N. 3 Clinical Report - Nurses [facility] Emergency Department [address] [place] [address] Phone #: ext- [phone] 01/11/2021 10:03 Patient: АНДРЕЙ CAGE Sex: M : 1995 Age: 25yNURSING PROGRESS NOTESPatient gowned. Reassurance given. Two patient identifiers checked. Call light placed in reach. Siderails up x 2. Bed placed in lowest position. Brakes of bed on. Patient ready for evaluation- ED physiciannotified. --10:12 01/11/21 Regina Wade R.N. 10:37 01/11/21. Patient tra nsported to AR by wheelchair with mask and tech. --10:52 01/11/21 Yvette Canales R.N. 10:39 01/11/2021 Acetaminophen PO 1000 mg given. Allergies verified and confirmed 5 rights. Information reviewed with patient including reason for taking this medication. Verbalizes understanding. --10:39 01/11/21 Yvette Canales R.N. 10:43 01/11/21. Patient returned from AR by wheelchair with mask and tech. --10:53 01/11/21 Yvette Canales R.N.DISPOSITION / DISCHARGE 11:25 01/11/21. BP: 122/76. HR: 68. RR: 16. O2 saturation: 99%. Temp: 97.6 F. Pain level now 210. --11:25 01/11/21 Varnell bracelet form coverer, Rob, ER Tech1 Condition at departure: improved and stable. No learning barriers present. Reviewed referral to an food tester. Work note given. The patient was discharged by the physician field assistant. He was discharged home. He left ambulatory and via private vehicle. Patient driving. --11:58 01/11/21 Yvette Canales R.N.Locked/Released at 01/11/2021 11:59 by Yvette Canales R.N. Name Value Range Interpretation Code Description Data Jayshree rce(s) Supporting Document(s) ID Date Data Source [id number] 01/11/2021 10:11:[address] [facility] 1 Clinical Report - Physicians/Mid Levels [facility] Emergency Department [address] [place] [address] Phone #: ext- [phone] 01/11/2021 10:03 [id number] Sex: M : 1995 Age: 25y Time [...] Hernia Repair. 2 Clinical Report - Physicians/Mid Levels [facility] Emergency Department [address] [place] [address] Phone #: ext- [phone] 01/11/2021 10:03 [id number] Sex: M : 1995 Age: 25y LEFT [...] independently 3 Clinical Report - Physicians/Mid Levels [facility] Emergency Department [address] [place] [address] Phone #: ext- [phone] 01/11/2021 10:03 Patient: [...] MORPH NOT INDICATEDCMP: (JEROME: 01/11/2021 10:42) ( MngRcvd 01/11/2021 11:11) Final results Test Result Flag [...] 56) 4 Clinical Report - Physicians/Mid Levels [facility] Emergency Department [address] [place] [address] Phone #: ext- [phone] 01/11/2021 10:03 Patient: [...] fatigue. 5 Clinical Report - Physicians/Mid Levels [facility] Emergency Department [address] [place] [address] Phone #: ext- [phone] 01/11/2021 10:03 Patient: АНДРЕЙ CAGE Sex: M : 1995 Age: 25y Your [...] Agrees to plan of care. Follow-up with: [facility], , , [address] [place] [address], , [place], [address] Follow up in three days even if well. Call for the next available appointment. Reason for referral: evaluation and ? anisicoria R eye, with R sided episodic headaches. Summary of care provided to patient via paper.(Electronically signed by JING Brandt 01/11/2021 13:13) Name Value Range Interpretation Code Description Data Jayshree rce(s) Supporting Document(s) ID Date Data Source [id number] 01/11/2021 11:11:00 AM EST [facility] Name Value Range Interpretation Code Description Data [facility] rce(s) Supporting Document(s) COMPREHENSIVE METABOLIC PANEL [facility] COMPREHENSIVE METABOLIC PANEL Sodium [Moles/volume] in Serum or Plasma 141 mEq/L 134 - 153 [facility] Potassium [Moles/volume] in Serum or Plasma 4.5 mEq/L 3.6 - 5.0 [facility] Chloride [Moles/volume] in Serum or Plasma 103 mEq/L 98 - 107 [facility] Carbon dioxide, total [Moles/volume] in Serum or Plasma 30 MEQ/L 22 - 30 [facility] Glucose [Mass/volume] in Serum or Plasma 93 MG/DL 70 - 99 [facility] BUN 15 MG/DL 7 - 21 [facility] Creat[facility] [Mass/volume] in Serum or Plasma 1.0 MG/DL 0.7 - 1.5 [facility] BUN/CREAT 15 8 - 27 [facility] al Protein [Mass/volume] in Serum or Plasma 7.4 G/DL 6.3 - 8.2 [facility] Albumin [Mass/volume] in Serum or Plasma 4.8 G/DL 3.9 - 5.0 [facility] Globulin [Mass/volume] in Serum by calculation 2.6 GM/DL 2.4 - 3.2 [facility] A/G RATIO 1.8 0.8 - 2.0 [facility] Calcium [Mass/volume] in Serum or Plasma 9.7 MG/DL 8.4 - 10.2 [facility] Bilirubin.total [Mass/volume] in Serum or Plasma 0.7 MG/DL 0.2 - 1.3 [facility] Alkaline phosphatase [Enzymatic activity/volume] in Serum or Plasma 75 U/L 38 - 126 [facility] Aspartate aminotransferase [Enzymatic activity/volume] in Serum or Plasma 23 U/L 5 - 40 [facility] Alanine aminotransferase [Enzymatic activity/volume] in Seru m or Plasma 24 U/L 7 - 56 [facility] Anion gap 3 in Serum or Plasma 8.0 mmol/L 8.0 - 16.0 [facility] AGE 25 yrs [facility] al NON-AA GFR >60 mL/min [facility] ital AFR AMER GFR >60 mL/min [facility] Ho spital Male GFR In terprentation 20-49 [...] >32 mL/min Normal ID Date Data Source [id number] 01/11/2021 11:11:00 AM EST [facility] Name Value Range Interpretation Code Description Data Jayshree rce(s) Supporting Document(s) CBC W/AUTOMATED DIFF [facility] COMPLETE BLOOD COUNT Leukocytes [#/volume] in Blood by Automated count 3.8 10^3/uL 4.2 - 1 1.0 L [facility] Erythrocytes [#/volume] in Blood by Automated count 5.60 10^6/uL 4. 50 - 6.30 [facility] Hemoglobin [Mass/volume] in Blood 16.1 g/dL 14.0 - 16.0 H [facility] Hematocrit [Volume Fraction] of Blood by Automated count 46.2 % 4 1.0 - 51.0 [facility] Erythrocyte mean corpuscular volume [Entitic volume] by Auto mated count 82.5 fL 80.0 - 94.0 [facility] Erythrocyte mean corpuscular hemoglobin [Entitic mass] by Automated count 28.8 pg 27.0 - 34.0 [facility] Erythrocyte mean corpuscular hemoglobin concentration [Mass/volume] by Automated count 34.8 g/dL 31.0 - 36.0 [facility] Erythrocyte distribution width [Ratio] by Automated count 12.2 % 11.5 - 14.8 [facility] Platelets [#/volume] in Blood by Automated count 148 10^3/uL 150 - 45 0 L [facility] Platelet mean volume [Entitic volume] in Blood by Automated count 11.7 fL 7.4 - 10.4 H [facility] Neutrophils/100 leukocytes in Blood by Automated count 58.1 % 37. 0 - 80.0 [facility] Lymphocytes/100 leukocytes in Blood by Manual count 29.8 % 25.0 - 40.0 [facility] Monocytes/100 leukocytes in Blood by Automated count 9.4 % 3.0 - 8.0 H [facility] Eosinophils/100 leukocytes in Blood by Automated count 1.6 % 0.0 - 7.0 [facility] Basophils/100 leukocytes in Blood by Automated count 0.8 % 0.0 - 2.0 [facility] %IG 0.3 % 0.0 - 0.0 H [facility] al %NRBC 0.0 % 0.0 - 0.0 [facility] al Neutrophils [#/volume] in Blood by Automated count 2.23 10^3/uL 2.00 - 6.90 [facility] Lymphocytes [#/volume] in Blood by Automated count 1.14 10^3/uL 0.60 - 3.40 [facility] Monocytes [#/volume] in Blood by Automated count 0.36 10^3/uL 0.00 - 0.90 [facility] Eosinophils [#/volume] in Blood by Automated count 0.06 10^3/uL 0.00 - 0.70 [facility] Basophils [#/volume] in Blood by Automated count 0.03 10^3/uL 0.00 - 0.20 [facility] #IG 0.01 10^3/uL 0.00 - 0.10 [facility] #NRBC 0.00 10^3/uL 0.00 - 0.00 [facility] MANUAL DIFF NOT INDICATED [facility] RBC MORPH NOT INDICATED [facility] Procedure
[2021-01-14 12:04] LABS: BASO % 1.1 % (0.0-1.0); EOS % 0.9 % (0.0-3.0); HEMATOCRIT 47.7 % (42.0-52.0); HEMOGLOBIN 16.1 g/dl (13.5-17.5); LYMPH # 0.9 10^3/uL (1.5-5.0); LYMPH % 26.7 % (24.0-44.0); MEAN CORPUSCULAR HEMOGLOBIN 27.9 pg (27.0-33.0); MEAN CORPUSCULAR HGB CONC 33.8 g/dl (32.0-36.5); MEAN CORPUSCULAR VOLUME 82.7 fl (80.0-96.0); MONO # 0.4 10^3/uL (0.0-0.8); MONO % 11.6 % (2.0-8.0); NEUTROPHILS # 2.1 10^3/uL (1.5-8.5); NEUTROPHILS % 59.4 % (36.0-66.0); PLATELET COUNT, AUTOMATED 149 10^3/uL (150-450); RED BLOOD COUNT 5.77 10^6/uL (4.30-6.10); WHITE BLOOD COUNT 3.5 10^3/uL (4.0-10.0)
[2021-01-14] MEDS ORDERED: ONDANSETRON 4MG/2ML VIAL IV ONE (12:15)
[2021-01-14] MEDS ORDERED: KETOROLAC 30 MG/ML 1ML VIAL IV ONE (12:15)
[2021-01-14 12:36] LABS: ALBUMIN 4.5 GM/DL (3.2-5.2); BILIRUBIN,DIRECT 0.2 MG/DL (0.0-0.2); BILIRUBIN,TOTAL 0.7 MG/DL (0.2-1.0); FREE T4 1.17 NG/DL (0.76-1.46); MAGNESIUM LEVEL 2.2 MG/DL (1.8-2.4); THYROID STIMULATING HORMONE 0.708 uIU/ML (0.358-3.740); TOTAL PROTEIN 6.7 GM/DL (6.4-8.2)
[2021-01-14 13:37] LABS: AMPHETAMINES LEVEL URINE NEGATIVE (NEGATIVE); BARBITURATES URINE NEGATIVE (NEGATIVE); BENZODIAZEPINES URINE NEGATIVE (NEGATIVE); CANNABINOIDS URINE POSITIVE (NEGATIVE); COCAINE METABOLITE URINE NEGATIVE (NEGATIVE); METHADONE URINE NEGATIVE (NEGATIVE); OPIATES URINE NEGATIVE (NEGATIVE); PHENCYCLIDINE URINE NEGATIVE (NEGATIVE)
[2021-01-14] MEDS ORDERED: SUMAtriptan SUCCINATE 25 MG TAB PO ONE (14:00)
--- NOTE | 2021-01-14 14:45 | REP ---
INDICATION: increased headache. COMPARISON: None. TECHNIQUE: Helical scanning is acquired. 5 mm axial images were reformatted. Coronal MPR images were generated. FINDINGS: Bone window settings demonstrate an intact bony calvarium. There is no evidence of skull fracture or incidental bony calvarial lesion. The visualized paranasal sinuses appear clear. No intraorbital abnormality is seen. On soft tissue window setting images; the lateral, third, and fourth ventricles are normal in size and position. Singh-white differentiation pattern is normal above and below the tentorium. There are is no evidence of intracranial hemorrhage. No mass, edema, infarction, or midline shift is seen. No extra-axial fluid collection is appreciated. IMPRESSION: Negative noncontrast head CT. <Electronically signed by Jesus Alberto Simpson > 01/14/21 [id number]
[2021-01-14] MEDS ORDERED: SUMA50TA2 PO (15:00)
[2021-01-14 15:06] VITALS: BP 131/80
== END 2021-01-14 15:14 | disposition home or self-care (01) ==
LOC: M ED 11:11
DX: R51.9 Headache, unspecified (principal); Z87.891 Personal history of nicotine dependence; F12.20 Cannabis dependence, uncomplicated; Z79.899 Other long term (current) drug therapy
CPT/HCPCS: 70450; 80047; 80076; 80307; 81001; 83690; 83735; 84439; 84443; 85025; 96374; 96375; 99284; J1885; J2405